=== PATIENT | male | born 1985 | race Caucasian/White ===

== ENCOUNTER 2024-04-18 08:52 | Day surgery (SDC) | payer BC ==
--- NOTE | 2024-04-17 14:08 | EKG ---
Test Date: 2024-04-16 Test Time: 15:08:20 Technical Systems Architect: CORTEZ MEASUREMENT RESULTS: Intervals: Rate: 52 SD: 124 QRSD: 96 QT: 412 QTc: 383 [place]: P: 33 SD: 124 QRS: 70 T: 52 INTERPRETIVE STATEMENTS: Sinus bradycardia Early repolarization Otherwise normal ECG No previous ECG available for comparison Electronically Signed On 04-17-24 14:06:59 CDT by Preet Anderson
[2024-04-18] MEDS: Ringers Lactate 1,000 ML IV ONE (09:10)
[2024-04-18] MEDS ORDERED: MIDAZOLAM HCL 2 MG/2 ML INJ ONE (11:44)
[2024-04-18] MEDS ORDERED: ROCURONIUM 50 MG/5 ML VIAL IV ONE (11:49)
[2024-04-18] MEDS ORDERED: FENTANYL CITR 100 MCG/2 ML ONE (11:49)
[2024-04-18] MEDS ORDERED: LIDOCAINE 1% MPF 5 ML VIAL ONE (11:49)
[2024-04-18] MEDS ORDERED: propofoL 200 MG/20 ML VIAL IV ONE (11:49)
[2024-04-18] MEDS: CEFAZOLIN SODIUM 2 GM/VIAL ONE (11:50)
[2024-04-18] MEDS ORDERED: ONDANSETRON 4 MG/2 ML VIAL ONE (12:11)
[2024-04-18] MEDS ORDERED: KETOROLAC 30 MG/ML INJ ONE (12:11)
[2024-04-18] MEDS ORDERED: dexAMETHasone 4 MG/ML VIAL ONE (12:11)
[2024-04-18] MEDS: LIDOCAINE HCL/EPINEPHRINE 20 ML MDV ONE (12:20)
--- NOTE | 2024-04-18 13:20 | P.OP ---
Preoperative diagnosis: LEFT Inguinal Hernia Postoperative diagnosis: LEFT Inguinal Hernia Primary procedure: Open LEFT Inguinal Hernia Repair with mesh Anesthesia: GETA + Local Estimated blood loss: <5cc Specimen: None Findings: Direct inguinal hernia Complications: None Implants: Medium Plug and Patch Transferred to: Recovery Room Condition: Good
[2024-04-18] MEDS: FENTANYL CITR 100 MCG/2 ML ONE (13:41)
[2024-04-18 13:51] VITALS: O2SAT 100
[2024-04-18] MEDS: HYDROCODONE/APAP 7.5/325 MG TAB ONE (14:49)
[2024-04-18 15:45] VITALS: BP 112/80; TEMP 96.9
--- NOTE | 2024-04-18 16:41 | OP ---
Date of Procedure: 04/18/2024 Surgeon: Abebe Segal MD, Preoperative Diagnosis: Left inguinal hernia. Postoperative Diagnosis: Left inguinal hernia. Procedure: Open left inguinal hernia repair with mesh. Anesthesia: General endotracheal plus local with 0.25% Marcaine. Estimated Blood Loss: 5 cc. Specimen: None. Findings: Direct inguinal hernia. Complications: None. Implants: Medium Bard plug and patch hernia repair system. Disposition: Patient transferred to recovery room in good condition. Procedure In Detail: After informed consent was obtained, patient was brought to the operating room, prepped and draped in the usual sterile fashion. After adequate anesthesia was achieved, I made a l inear incision down to the inguinal area down to subcutaneous tissue. After appropriately anesthetiz ing the skin, 15 blade was used to take down the subcutaneous fat and to dissect down through Camper' s fat and Julianne's fascia to expose the external oblique aponeurosis. This was opened sharply, at th is point, using a 15 blade. At this point, I opened it in its entirety along the medial and lateral area protecting the ilioinguinal, iliohypogastric nerves throughout. After the spermatic cord and st ructures were encircled with a [place] drain, I dissected free to the medial aspect where a direct in guinal hernia was appreciated. This area was circumferentially cleansed of all other surrounding tis sues. I then pushed the hernia defect back in the preperitoneal space and deployed a medium hernia p lug into the space, deployed it circumferentially securing it using 2-0 PDS sutures around the shelvi ng edge circumferentially around the area with good apposition of the tissues. At this point, then I deployed a Covidien hernia patch securing it to the pubic tubercle and medial aspect on the shelving edge of both the internal oblique aponeurosis and the undersurface of the inguinal ligament using in terrupted 2-0 PDS sutures circumferentially reconstituting the deep inguinal ring. At this point, I trimmed the mesh appropriately. I irrigated the area and closed the external oblique aponeurosis usi ng a running 3-0 Vicryl suture without incident or complication. I then reapproximated Camper's fat and Julianne's fascia appropriately cleansing the area. I closed the Camper's fat and Julianne's fascia using interrupted 3-0 Vicryl sutures and then the deep dermal plane was closed with same set 3-0 Vicr yl suture. Skin was closed with a 4-0 Monocryl in a running fashion. Dermabond placed over top. Th e patient tolerated procedure well without incident or complication, transferred to PACU in good cond ition. All counts were correct at the end of the case. YUKI/NAIMA Voice ID: [id number] Report ID: [id number]
== END 2024-04-18 15:32 | disposition home or self-care (01) ==
LOC: OR 08:52
PROVIDERS: ATTEND Surgery
PROC: 0YU60JZ Supplement Left Inguinal Region with Synthetic Substitute, Open Approach (ICD-10-PCS; principal; 2024-04-18 11:00)
DX: K40.90 Unilateral inguinal hernia, without obstruction or gangrene, not specified as recurrent (principal)
CPT/HCPCS: 93005; 80048; 36415; 49505; J2704; J1100; J2001; J2250; J3010 ×2; J2405; J7120